=== PATIENT | male | born 1970 ===

== ENCOUNTER 2021-04-17 12:56 | Emergency (ER) | payer MEDICAID ==
[~2021-04-17] VITALS: Ht 182.9 cm; Wt 81.8 kg
[2021-04-17 13:05] VITALS: BP 170/112
== END 2021-04-17 14:51 | disposition left against medical advice (07) ==
LOC: EMS 13:16
DX: R45.851 Suicidal ideations (principal); Z53.21 Procedure and treatment not carried out due to patient leaving prior to being seen by health care provider